=== PATIENT | female | born 1970 | race Caucasian/White ===

== ENCOUNTER 2024-03-23 10:25 | Emergency (ER) | payer OTHER, SELFPAY ==
[2024-03-23 10:34] VITALS: BP 100/63
--- NOTE | 2024-03-23 12:58 | ED.GENMED ---
History of Present Illness
General
Chief Complaint: Musculo-Skeletal Complaint
Source: patient
Exam Limitations: none
Time Seen by Provider: 03/23/24 10:40
Nursing documentation reviewed up to this point in time: agreed with
History of Present Illness
History of Present Illness:
53-year-old female presented to the emergency department today with concerns of a trip and fall while jogging directly onto her left hand mainly injuring her pinky finger and ring finger. Denies any head trauma loss of consciousness numbness or
weakness. Did notice deformity to her pinky finger
Review of Systems
Review of Systems
Allergies reviewed?: Yes
All Other Systems: ROS reviewed and negative except as documented in HPI and ROS
Phy Exam
Physical Exam
Physical Exam:
GENERAL: Alert , in no apparent distress
EYE: pupils equal and reactive
NECK: Supple, no significant adenopathy.
ENT: o/p clr, mmm.
CARDIAC: Regular rate and rhythm .
LUNGS: Clear breath sounds bilaterally, no acute respiratory distress, no wheezes/rales/rhonchi
ABDOMEN: Soft, without focal tenderness, no r/g, no cvat
NEUROLOGICAL: Alert and oriented, no focal neuro deficits
SKIN: Warm and dry, skin intact.
MUSCULOSKELETAL: Tenderness and swelling to the left pinky finger as well as the proximal left ring finger. Slight deformity to the pinky finger as well. No tenderness about the hand or wrist., well perfused.
PSYCH: Normal and appropriate interaction.
Course
Orders/Labs/Results
Orders:
Orders
03/23/24 10:35
Hand, Left 3 View [CR Hand - Left Min 3 Views] Urgent
Comment:
Reason For Exam: fell deformity to pinky finger/ pain to ring finge
03/23/24 11:47
CR Hand - Left 2 Views Urgent
Comment:
Reason For Exam: repeat finger film
Vital Signs
Initial and Last Documented VS:
Initial Vital Signs
Temp Pulse Resp BP Pulse Ox
98.4 F 54 16 100/63 98
03/23/24 10:34 03/23/24 10:34 03/23/24 10:34 03/23/24 10:34 03/23/24 10:34
Last Documented Vital Signs
Temp Pulse Resp BP Pulse Ox
98.4 F 54 16 100/63 98
03/23/24 10:34 03/23/24 10:34 03/23/24 10:34 03/23/24 10:34 03/23/24 10:34
Procedures
Splinting/Sling Placement
Left Hand:
Procedure completed by: myself
Pre-splint extermity exam: neurovascular intact
Type of splint: ulnar gutter
Splint material: fiberglass
Splint checked by provider?: Yes
Type of sling: sling fitted
Normal distal neurovascular exam?: Yes
Joint/Fracture Reduction
Left Fifth Finger:
Indication for procedure:: fracture displaced
Procedure completed by: myself
Consent form signed: No
If no, reason: Emergency procedure
Joint reduced: without anesthesia
Anesthesia/sedation: 1% Lidocaine and Regional block
Injury was: closed
Further treatement: needs further treatment
Post reduction exam: stable
Capillary Refill: normal
Normal distal neurovascular exam?: Yes
MDM/Problems Addressed
MDM/Problems Addressed:
53-year-old female presenting to the emergency department today with concerns of injury to the left hand tripping and falling while jogging. Patient found to have displaced fracture of the proximal phalanx of the pinky finger and a nondisplaced
fracture of the ring finger. Initial reduction performed without great success Case discussed with orthopedics they recommended placing ulnar gutter splint and finger will likely need a pin. Patient was neurovascular intact stable for discharge
she was splinted otherwise will follow-up closely with the hand doctor.
*Critical Care Note
Total Time (30-74mins, 75-104mins- exclusive of procedures): Not Applicable
ED Attending Note
-
Portions of this chart may have been created with voice recognition software.� Occasional wrong word or��sound alike� substitutions may have occurred due to the inherent limitations of voice recognition software.
Discharge Plan
Departure
Patient Disposition: Home (Routine Discharge)
Date of Disposition: 03/23/24
Time of Disposition: 12:58
Patient with high blood pressure during this ER visit?: No
Condition: Good
Covid-19: Not Applicable
Discharge Problem:
Finger fracture, left
Instructions: Finger Fracture ED
Prescriptions:
No Action
multivitamin 1 EACH tablet
1 tab PO DAILY
acetaminophen 325 MG tablet
1 tab PO PRN PRN (Reason: pain)
ibuprofen [Advil] 200 MG tablet
200 - 400 mg PO PRN PRN (Reason: pain)
[id number] [Caltrate 600-D Plus Minerals] 1 EACH tablet,chewable
1 tab PO DAILY
Referrals:
Emely Marsh MD [Family Provider] -
Vinay Purvis MD [Active] - Follow up in 5-7 days
Activity Restrictions/Additional Instructions:
You came the emergency department today with concerns of finger pain after a fall. Found to have a fracture of the base of the fifth and fourth finger. Please leave the splint in place and follow-up closely with orthopedics. Return to the
emergency department any worsening, new or concerning symptoms.
Interventions
Interventions:
*Risk Screen - Suicide Last Done: 03/23/24 11:26
*General Assessment Last Done: 03/23/24 11:26
*Neglect/Abuse Screening Last Done: 03/23/24 11:26
ED- Fall Risk Assessment Last Done: 03/23/24 11:26
*ED COVID-19 Vaccine History Last Done: 03/23/24 10:34
ED-Musculoskeletal Assessment Last Done: 03/23/24 11:26
Discharge Date and Time
Print Language: FILIPINO
== END 2024-03-23 13:01 | disposition home or self-care (01) ==
LOC: EMR 10:25
PROVIDERS: EMERGENCY PHYSICIAN Emergency Medicine; FAMILY PHYSICIAN Family Medicine
DX: S62.617A Displaced fracture of proximal phalanx of left little finger, initial encounter for closed fracture (principal); S62.645A Nondisplaced fracture of proximal phalanx of left ring finger, initial encounter for closed fracture; W01.0XXA Fall on same level from slipping, tripping and stumbling without subsequent striking against object, initial encounter; Y93.02 Activity, running; Y92.410 Unspecified street and highway as the place of occurrence of the external cause
CPT/HCPCS: 99283; 26725; 29125; 73120; 73130

== ENCOUNTER → 2024-04-21 08:16 | Outpatient (REF) | payer OTHER, SELFPAY | LOC: HWRCS 08:16 | PROVIDERS: ATTENDING PHYSICIAN Internal Medicine Cardiovascular Disease; FAMILY PHYSICIAN Family Medicine | DX: R06.09 Other forms of dyspnea (principal) | CPT/HCPCS: 93306 ==

== ENCOUNTER 2024-05-01 14:59 | Outpatient (RCR) | payer OTHER, SELFPAY | END 2024-05-01 23:59 | disposition home or self-care (01) | LOC: ROT 14:59 | PROVIDERS: ATTENDING PHYSICIAN Orthopaedic Surgery Hand Surgery; FAMILY PHYSICIAN Family Medicine; OTHER PHYSICIAN Orthopaedic Surgery | DX: Z47.89 Encounter for other orthopedic aftercare (principal); Z73.6 Limitation of activities due to disability | CPT/HCPCS: 97018; 97110; 97140; 97166; 97535; 97760 ==

== ENCOUNTER → 2024-05-04 14:37 | Outpatient (REF) | payer OTHER, SELFPAY | LOC: WDC 14:37 | PROVIDERS: ATTENDING PHYSICIAN Obstetrics & Gynecology Gynecology; FAMILY PHYSICIAN Family Medicine | DX: Z12.31 Encounter for screening mammogram for malignant neoplasm of breast (principal) | CPT/HCPCS: 77063; 77067 ==

== ENCOUNTER 2024-06-01 16:48 | Outpatient (RCR) | payer OTHER, SELFPAY | END 2024-06-01 23:59 | disposition home or self-care (01) | LOC: ROT 16:48 | PROVIDERS: ATTENDING PHYSICIAN Orthopaedic Surgery Hand Surgery | DX: Z47.89 Encounter for other orthopedic aftercare (principal); M25.642 Stiffness of left hand, not elsewhere classified; M25.542 Pain in joints of left hand; Z73.6 Limitation of activities due to disability | CPT/HCPCS: 97018; 97035; 97110; 97140; 97760 ==

== ENCOUNTER 2024-06-13 16:03 | Outpatient (RCR) | payer OTHER, SELFPAY | END 2024-06-13 23:59 | disposition home or self-care (01) | LOC: ROT 16:03 | PROVIDERS: ATTENDING PHYSICIAN Orthopaedic Surgery Hand Surgery | DX: Z47.89 Encounter for other orthopedic aftercare (principal) | CPT/HCPCS: 97018; 97035; 97110; 97140 ==

== ENCOUNTER 2024-07-04 17:55 | Outpatient (RCR) | payer OTHER, SELFPAY | END 2024-07-04 23:59 | disposition home or self-care (01) | LOC: ROT 17:55 | PROVIDERS: ATTENDING PHYSICIAN Orthopaedic Surgery Hand Surgery | DX: Z47.89 Encounter for other orthopedic aftercare (principal); Z73.6 Limitation of activities due to disability; M25.542 Pain in joints of left hand | CPT/HCPCS: 97018; 97110; 97140 ==

== ENCOUNTER → 2024-08-21 06:28 | Day surgery (SDC) | payer OTHER, SELFPAY | LOC: GI 06:28 | PROVIDERS: ATTENDING PHYSICIAN Internal Medicine Gastroenterology | DX: D12.4 Benign neoplasm of descending colon (principal); K57.30 Diverticulosis of large intestine without perforation or abscess without bleeding; K62.1 Rectal polyp; Z86.0101 Personal history of adenomatous and serrated colon polyps | CPT/HCPCS: 45380; 88305 ==

== ENCOUNTER 2024-09-06 06:20 | Day surgery (SDC) | payer OTHER, SELFPAY ==
[2024-09-06 11:15] VITALS: BMI 20.4
[2024-09-06 12:19] VITALS: BP 134/65; BMI 20.4
[2024-09-06] MEDS: TYLENOL 1000 MG PO (12:31)
[2024-09-06] MEDS: CELEBREX 200 MG PO (12:31)
[2024-09-06 16:45] VITALS: BP 107/50
[2024-09-06 17:00] VITALS: BP 100/53
== END 2024-09-06 17:22 | disposition home or self-care (01) ==
LOC: SDS 06:20
PROVIDERS: ATTENDING PHYSICIAN Orthopaedic Surgery Hand Surgery
DX: M25.542 Pain in joints of left hand (principal); Z87.81 Personal history of (healed) traumatic fracture
CPT/HCPCS: 26440; 26125

== ENCOUNTER 2024-10-03 13:28 | Outpatient (RCR) | payer OTHER, SELFPAY | END 2024-10-03 23:59 | disposition home or self-care (01) | LOC: ROT 13:28 | PROVIDERS: ATTENDING PHYSICIAN Orthopaedic Surgery Hand Surgery | DX: Z47.89 Encounter for other orthopedic aftercare (principal); M79.642 Pain in left hand; Z73.6 Limitation of activities due to disability | CPT/HCPCS: 97018; 97110; 97140; 97166; 97535 ==

== ENCOUNTER 2024-10-17 16:03 | Outpatient (RCR) | payer OTHER, SELFPAY | END 2024-10-17 23:59 | disposition home or self-care (01) | LOC: ROT 16:03 | PROVIDERS: ATTENDING PHYSICIAN Orthopaedic Surgery Hand Surgery | DX: Z47.89 Encounter for other orthopedic aftercare (principal); M79.642 Pain in left hand; Z73.6 Limitation of activities due to disability | CPT/HCPCS: 97018; 97110; 97140 ==

== ENCOUNTER → 2024-12-21 06:42 | Outpatient (REF) | payer OTHER, SELFPAY | LOC: RCS 06:42 | PROVIDERS: ATTENDING PHYSICIAN Physician Assistant | DX: Z01.818 Encounter for other preprocedural examination (principal) | CPT/HCPCS: 93005 ==

== ENCOUNTER → 2025-05-07 12:34 | Outpatient (REF) | payer OTHER, SELFPAY | LOC: WDC 12:34 | PROVIDERS: ATTENDING PHYSICIAN Obstetrics & Gynecology Gynecology; FAMILY PHYSICIAN Family Medicine | DX: Z12.39 Encounter for other screening for malignant neoplasm of breast (principal) | CPT/HCPCS: 77063; 77067 ==